=== PATIENT | male | born 1970 | race Caucasian/White ===

== ENCOUNTER 2018-06-02 19:04 | Emergency (ER) | payer OTHER ==
[2018-06-02 19:18] VITALS: BP 116/76
--- NOTE | 2018-06-02 19:43 | EDPHY ---
H & P Time Seen by Provider: 06/02/18 19:19 HPI/ROS: CHIEF COMPLAINT: Right calf pain History by patient HISTORY OF PRESENT ILLNESS: 47-year-old man with a history of borderline high cholesterol for which he does not take medication presents complaining of acute onset of right calf pain just prior to arrival. Patient states that he was sitting down at a high bar stool in a restaurant and his calf brushed against the bar on the stool and was painful. He describes it as a highly localized crampy pain as well some mild pain along his Achilles tendon. When he touched he felt that his skin was sensitive. His thought maybe his leg looked a little swollen. He was concerned immediately about a blood clot because his father of a heart attack and also had high cholesterol. Patient notes that he ran a [employer] 4 days ago for the 1st time in a while. He typically runs a couple times a week but has not run in the past few weeks until this weekend. He denies any specific trauma to the leg. There was no pain in the leg after the race. He does not smoke. He has had no recent hospitalizations or surgeries. He has no prior history of venous thromboembolism nor is there any family history of venous thromboembolism. He does not take any hormones. He denies any chest pain or shortness of breath. He has never had anything like this before. Currently the pain is what he describes as"a mild cramp". REVIEW OF SYSTEMS: As in HPI, and all other systems reviewed and are negative Smoking Status: Never smoked Physical Exam: General Appearance: Alert and no distress. Head: Normocephalic, atraumatic Eyes: Pupils equal and round no injection. Extraocular movements are intact. Musculoskeletal: Neck is supple and nontender. Extremities: Right leg without obvious swelling, full range of motion of right hip knee ankle and toes. DP and PT +2+ and equal bilaterally. No erythema or tenderness. No palpable cords. No varicose veins. Corrine's negative. Achilles tendons intact bilaterally. Skin: No rashes or lesions except as described above. Constitutional: Initial Vital Signs Temperature (C) 36.9 C 06/02/18 19:14 Heart Rate 61 06/02/18 19:14 Respiratory Rate 16 06/02/18 19:14 Blood Pressure 116/76 06/02/18 19:14 O2 Sat (%) 98 06/02/18 19:14 O2 Delivery Mode Room Air Allergies/Adverse Reactions: No Known Allergies Allergy (Unverified 08/03/09 11:31) Home Medications: Medication Instructions Recorded Vitamins 08/03/09 MDM/Departure - [facility] ED Course/Re-evaluation: 47-year-old otherwise healthy man presents with localized right calf pain times 1-2 hours. Patient was very worried about a blood clot. We discussed the difference between arterial and a venous blood clot. There is no clinical evidence of either of these. Patient is extremely low risk for venous thromboembolism. We discussed the use of D-dimer however in this extremely low risk patient this did not seem necessary and the patient was in agreement. I suspect the patient's symptoms are musculoskeletal and may be a simple leg cramps versus strain related to his recent running race. We did discuss return precautions and signs and symptoms of lower extremity VTE that would warrant return and further evaluation. Patient understands and is agreeable to this plan. - Depart Disposition: Home, Routine, Self-Care Clinical Impression: Right calf pain Condition: Good Instructions: Leg Cramps (ED) Additional Instructions: You were seen by Dr. Lizet Gates today. You have no evidence of blood clot today. If your leg pain bothers you, I recommend Tylenol or ibuprofen. Return for any worsening or new concerns, including but not limited to obvious swelling, redness, increased pain or other changes. Referrals: Gordon Roper MD [Primary Care Provider] - As per Instructions
== END 2018-06-02 19:59 | disposition home or self-care (01) ==
LOC: CED 19:04
DX: M79.661 Pain in right lower leg (principal); W22.8XXA Striking against or struck by other objects, initial encounter; Y92.511 Restaurant or cafe as the place of occurrence of the external cause
CPT/HCPCS: 99282-ER